=== PATIENT | male | born 1985 | race Two or more races ===

== ENCOUNTER 2022-12-24 13:48 | Emergency (ER) | payer SELFPAY ==
[~2022-12-24] VITALS: Ht 188 cm; Wt 102.0 kg
[2022-12-24 14:35] LABS: Basophils # (auto) 0.1 10 ^3/uL (0-0.2); Basophils % (auto) 0.4 % (0.0-2.0); Eosinophils # (auto) 0.1 10 ^3/uL (0-0.8); Eosinophils % (auto) 0.5 % (0.0-7.0); Hemoglobin 13.6 g/dL (13.5-17.5); Lymphocytes # (auto) 8.6 10 ^3/uL (0.4-5.4); Mean Corpuscular Hemoglobin 30.8 pg (28.0-32.0); Mean Corpuscular Volume 90.6 fL (80.0-100.0); Monocytes % (auto) 5.8 % (0.0-12.0); Neutrophils # (auto) 7.7 10 ^3/uL (1.6-8.6); Neutrophils % (auto) 44.3 % (37.0-80.0); Nucleated Red Blood Cells % 0.2 %; Red Blood Cells 4.41 10^6/uL (4.5-5.90); Red Cell Distribution Width 12.9 % (11.8-14.3); White Blood Cell 17.5 10^3/uL (4.4-10.8)
[2022-12-24 14:41] VITALS: BP 117/62
[2022-12-24 14:41] LABS: Albumin 3.4 g/dL (3.4-5.0); Calcium 7.7 mg/dL (8.5-10.1); Magnesium 2.2 mg/dL (1.6-2.6)
[2022-12-24 14:45] LABS: BUN/Creatinine Ratio 11.5 (10.0-20.0); Bilirubin, Total 0.1 mg/dL (0.2-1.0); Total Protein 6.7 g/dL (6.4-8.2)
[2022-12-24 15:00] LABS: INR 0.95 (0.9-1.15); Partial Thromboplastin Time 23.6 sec (24.6-33.4)
== END 2022-12-24 17:21 | disposition left against medical advice (07) ==
LOC: EDBD 13:48 → ER 13:48
DX: R00.2 Palpitations (principal); Z53.21 Procedure and treatment not carried out due to patient leaving prior to being seen by health care provider
CPT/HCPCS: 36415; 80053; 83735; 83880; 84484; 85025; 85610; 85730; 93005